=== PATIENT | female | born 1975 | race African-American/Black ===

== ENCOUNTER 2018-08-02 21:18 | Emergency (ER) | payer BC ==
[~2018-08-02] VITALS: Ht 152.4 cm; Wt 69.4 kg
[2018-08-02 21:23] VITALS: BP 129/85; Ht 152.4 cm; Wt 69.4 kg
[2018-08-02] MEDS ORDERED: TAMIFLU75 MG PO (21:52)
[2018-08-02] MEDS ORDERED: ZPAK PO (21:53)
[2018-08-02] MEDS ORDERED: PHENERGAN DM SYR5 ML PO (21:53)
[2018-08-02 22:19] LABS: BASOPHILS 0.4 % (0-2); EOSINOPHILS 0.6 % (0-7); HEMATOCRIT 34.1 % (36.0-48.0); HEMOGLOBIN 12.1 g/dL (12-16); IMMATURE GRANULOCYTES 0.2 % (0-5); LYMPHOCYTES 6.7 % (15-50); MCHC 35.5 g/dL (31.0-37.0); MCV 92.9 fL (80.0-100.0); MONOCYTES 11.8 % (2-11); NEUTROPHILS 80.3 % (40-80); PLATELET COUNT 390 10x3/uL (130-400); RBC 3.67 10x6/uL (4.00-5.40); RDW 12.9 % (11.5-14.5); WBC 10.6 10x3/uL (4.8-10.8)
[2018-08-02 22:45] LABS: ALBUMIN 3.6 g/dL (3.4-5.0); ALKALINE PHOSPHATASE 54 U/L (46-116); ALT (SGPT) 14 U/L (10-68); BILIRUBIN - TOTAL 0.37 mg/dL (0.2-1.3); CALC OSMOLALITY 273 mosm/kg (275-300); CALCIUM 9.1 mg/dL (8.5-10.1); CARBON DIOXIDE 24.6 mmol/L (21.0-32.0); CHLORIDE - SERUM 102 mmol/L (98-107); CREATININE - SERUM 0.8 mg/dL (0.6-1.3); GLUCOSE 98 mg/dL (74-106); POTASSIUM - SERUM 3.7 mmol/L (3.5-5.1); PROTEIN - SERUM 7.4 g/dL (6.4-8.2); SODIUM 138 mmol/L (136-145); UREA NITROGEN 6 mg/dL (7-18); eGFR NON AFRICAN AMERICAN 83 mL/min (90-120)
== END 2018-08-03 00:06 | disposition home or self-care (01) ==
LOC: D.ER 21:18
PROVIDERS: Family Medicine
DX: J09.X2 Influenza due to identified novel influenza A virus with other respiratory manifestations (principal); J18.9 Pneumonia, unspecified organism; R05 Cough; M79.18 Myalgia, other site